=== PATIENT | female | born 1995 | race Two or more races ===

== ENCOUNTER 2017-05-27 08:10 | Emergency (ER) | payer MEDICAID ==
[~2017-05-27] VITALS: Ht 147.3 cm; Wt 45.4 kg
[~2017-05-27 08:10] MED LIST: CALC-304 PO; CIPR-173 PO; ENA10T PO; HYDR200T PO; MYCO500T PO; OMEP20CA74 PO; ONDA4TAB5 PO; TRAM50TA2 PO
[2017-05-27 09:12] VITALS: BP 127/81
[2017-05-27 10:01] LABS: Urine Bilirubin Negative (Negative); Urine Color Yellow (Yellow); Urine Glucose Normal (Normal); Urine Ketone Negative (Negative); Urine Mucus FEW (None Seen); Urine RBC 4 /hpf (0 - 4); Urine Squamous Epithelial Cell FEW /hpf (<5); Urine Urobilinogen Normal (Negative); Urine pH 5.5 (5.0-8.0)
[2017-05-27 10:02] LABS: Urine Blood 1+ /uL (Negative); Urine Nitrite POSITIVE (Negative)
[2017-05-27] MEDS ORDERED: KETOROLAC TROMETH 60MG/2ML VIAL IM ONE (10:15)
[2017-05-27] MEDS ORDERED: cefTRIAXone SOD 1,000 MG VL IM ONE (10:15)
== END 2017-05-27 11:03 | disposition home or self-care (01) ==
LOC: ER 08:10
DX: N12 Tubulo-interstitial nephritis, not specified as acute or chronic (principal); Z90.49 Acquired absence of other specified parts of digestive tract; Z87.440 Personal history of urinary (tract) infections
CPT/HCPCS: 81001; 81025; 96372; 99284; J0696; J1885

== ENCOUNTER 2017-07-10 11:28 | Emergency (ER) | payer MEDICAID ==
[~2017-07-10] VITALS: Ht 147.3 cm; Wt 44.5 kg
[2017-07-10 12:20] LABS: Urine Bilirubin Negative (Negative); Urine Blood Negative /uL (Negative); Urine Color Yellow (Yellow); Urine Glucose Normal (Normal); Urine Ketone Negative (Negative); Urine Mucus FEW (None Seen); Urine Nitrite Negative (Negative); Urine RBC 1 /hpf (0 - 4); Urine Squamous Epithelial Cell FEW /hpf (<5); Urine Urobilinogen Normal (Negative)
[2017-07-10 12:46] LABS: Basophils # (auto) 0 uL; Basophils % (auto) 0.5 % (0.0-2.0); Eosinophils # (auto) 0 uL; Eosinophils % (auto) 1.2 % (0.0-7.0); Hematocrit 33.7 % (36.0-46.0); Hemoglobin 11.6 g/dL (12.2-16.2); Lymphocytes # (auto) 1.7 uL; Lymphocytes % (auto) 45.6 % (10.0-50.0); Mean Corpuscular Hgb Conc. 34.3 g/dL (32.0-36.0); Mean Corpuscular Volume 93.2 fL (80.0-100.0); Mean Platelet Volume 7.2 fL (6.9-10.8); Monocytes # (auto) 0.3 uL; Monocytes % (auto) 7.7 % (0.0-12.0); Neutrophils # (auto) 1.6 uL; Nucleated Red Blood Cells % 0.1 %; Platelet Count (auto) 234 10^3/uL (140-450); White Blood Cell 3.6 10^3/uL (4.4-10.8)
[2017-07-10 12:58] LABS: Albumin 3.4 g/dL (3.4-5.0); Calcium 8.3 mg/dL (8.5-10.1)
[2017-07-10 13:00] LABS: BUN/Creatinine Ratio 12.8
[2017-07-10 13:03] LABS: Bilirubin, Total 0.6 mg/dL (0.2-1.0); Total Protein 6.4 g/dL (6.4-8.2)
[2017-07-10 13:05] LABS: INR 1.1 (0.9-1.15); Partial Thromboplastin Time 24.8 sec (22.64-33.71)
[2017-07-10] MEDS ORDERED: ONDANSETRON HCL 4 MG/2 ML VIAL IV ONE (16:15)
[2017-07-10] MEDS ORDERED: MORPHINE SULF INJ 2 MG/ML SYRINGE 1ML IV ONE (16:15)
[2017-07-10] MEDS ORDERED: SODIUM CHLORIDE 0.9% 1,000 ML IV ONE (16:30)
[2017-07-10 18:45] VITALS: BP 122/76
== END 2017-07-10 18:32 | disposition home or self-care (01) ==
LOC: ER 11:28
DX: M87.051 Idiopathic aseptic necrosis of right femur (principal); Z79.899 Other long term (current) drug therapy; Z90.49 Acquired absence of other specified parts of digestive tract; Z87.440 Personal history of urinary (tract) infections
CPT/HCPCS: 36415; 73552; 73700; 80053; 81001; 84702; 85025; 85379; 85610; 85652; 85730; 93971; 94761; 96361; 96374; 96375; 99285; J2270; J2405; J7030

== ENCOUNTER 2018-09-05 11:26 | Emergency (ER) | payer MEDICAID ==
[~2018-09-05] VITALS: Ht 147.3 cm; Wt 49.9 kg
[~2018-09-05 11:26] MED LIST changes: +HYDR-4441 PO; -HYDR200T PO
[2018-09-05 11:55] VITALS: BP 120/71
[2018-09-05 12:14] LABS: Basophils # (auto) 0 uL; Basophils % (auto) 0.5 % (0.0-2.0); Eosinophils # (auto) 0 uL; Eosinophils % (auto) 0.8 % (0.0-7.0); Hemoglobin 12.4 g/dL (12.2-16.2); Lymphocytes # (auto) 1.9 uL; Lymphocytes % (auto) 41.6 % (10.0-50.0); Mean Corpuscular Hemoglobin 30.3 pg (28.0-32.0); Mean Corpuscular Hgb Conc. 33.4 g/dL (32.0-36.0); Mean Corpuscular Volume 90.5 fL (80.0-100.0); Monocytes # (auto) 0.3 uL; Neutrophils # (auto) 2.2 uL; Neutrophils % (auto) 50.1 % (37.0-80.0); Nucleated Red Blood Cells % 0.1 %; Platelet Count (auto) 224 10^3/uL (140-450); Red Blood Cells 4.08 10^6/uL (4.0-5.20); Red Cell Distribution Width 12.5 % (11.8-14.3); White Blood Cell 4.5 10^3/uL (4.4-10.8)
[2018-09-05 12:19] LABS: Urine Bacteria FEW /hpf (None Seen); Urine Blood TRACE /uL (Negative); Urine Mucus FEW (None Seen); Urine Specific Gravity 1.037 (1.001-1.035); Urine WBC 5 /hpf (0 - 5)
[2018-09-05 12:31] LABS: Albumin 3.8 g/dL (3.4-5.0); Calcium 8.3 mg/dL (8.5-10.1); Potassium 3.6 mmol/L (3.5-5.1)
[2018-09-05] MEDS ORDERED: SODIUM CHLORIDE 0.9% 1,000 ML IV ONE (12:31)
[2018-09-05 12:34] LABS: Bilirubin, Total 1.1 mg/dL (0.2-1.0); Total Protein 7.5 g/dL (6.4-8.2)
[2018-09-05] MEDS ORDERED: cefTRIAXone 1GM/50ML D5W 50 ML IV ONE (12:45)
[2018-09-05] MEDS ORDERED: KETOROLAC TROMETH 30 MG/ML 1ML VIAL IV ONE (12:45)
== END 2018-09-05 13:03 | disposition home or self-care (01) ==
LOC: ER 11:28
DX: N39.0 Urinary tract infection, site not specified (principal); Z90.49 Acquired absence of other specified parts of digestive tract
CPT/HCPCS: 36415; 80053; 81001; 81025; 85025; 94761; 96374; 96375; 99284; J0696; J1885

== ENCOUNTER 2020-06-12 17:55 | Emergency (ER) | payer MEDICAID ==
[~2020-06-12] VITALS: Ht 147.3 cm; Wt 49.9 kg
[~2020-06-12 17:55] MED LIST changes: -CALC-304 PO; -CIPR-173 PO; -ENA10T PO; +ENAL10TA12 PO; +HYDR-4188 PO; -HYDR-4441 PO; -OMEP20CA74 PO; -ONDA4TAB5 PO; -TRAM50TA2 PO
[2020-06-12 18:01] VITALS: BP 124/67
== END 2020-06-12 20:18 | disposition left against medical advice (07) ==
LOC: ER 17:56
DX: M25.551 Pain in right hip (principal); Z53.21 Procedure and treatment not carried out due to patient leaving prior to being seen by health care provider

== ENCOUNTER → 2020-11-24 | Emergency (ER) | payer MEDICAID ==
[~2020-11-24] VITALS: Ht 160 cm; Wt 49.9 kg
[~2020-11-24] MED LIST changes: +IBUPROFEN 600 MG TAB PO ONE; +ONDANSETRON HCL 4 MG/2 ML VIAL IV ONE; +ONDANSETRON HCL 4 MG/2 ML VIAL ONE; +SODIUM CHLORIDE 0.9% 1,000 ML IVB ONE; +cefTRIAXone 1GM/50ML D5W 50 ML IV ONE
[2020-11-24 11:55] LABS: Basophils # (auto) 0 10 ^3/uL (0-0.2); Basophils % (auto) 0.4 % (0.0-2.0); Eosinophils # (auto) 0 10 ^3/uL (0-0.8); Eosinophils % (auto) 0.5 % (0.0-7.0); Hematocrit 35.5 % (36.0-46.0); Hemoglobin 12.7 g/dL (12.2-16.2); Lymphocytes # (auto) 1.2 10 ^3/uL (0.4-5.4); Lymphocytes % (auto) 17.6 % (10.0-50.0); Mean Corpuscular Hemoglobin 31.7 pg (28.0-32.0); Mean Corpuscular Hgb Conc. 35.7 g/dL (32.0-36.0); Mean Corpuscular Volume 88.9 fL (80.0-100.0); Monocytes # (auto) 0.4 10 ^3/uL (0-1.3); Monocytes % (auto) 5.6 % (0.0-12.0); Neutrophils % (auto) 75.9 % (37.0-80.0); Platelet Count (auto) 230 10^3/uL (140-450); Red Cell Distribution Width 11.9 % (11.8-14.3); White Blood Cell 6.6 10^3/uL (4.4-10.8)
[2020-11-24 12:12] LABS: Albumin 3.8 g/dL (3.4-5.0); Anion Gap 4 (5-15); Blood Urea Nitrogen 12 mg/dL (7-18); Calcium 8.3 mg/dL (8.5-10.1); Carbon Dioxide 25 mmol/L (21-32); Chloride 110 mmol/L (98-107); Glucose 87 mg/dL (74-106); Potassium 3.6 mmol/L (3.5-5.1); Sodium 139 mmol/L (136-145)
[2020-11-24 12:15] LABS: INR 1.06 (0.9-1.15); Partial Thromboplastin Time 29.4 sec (23.0-31.2)
[2020-11-24 12:17] LABS: Urine Bacteria FEW /hpf (None Seen); Urine Blood Negative /uL (Negative); Urine Mucus FEW (None Seen); Urine Specific Gravity 1.024 (1.001-1.035); Urine WBC 28 /hpf (0 - 5)
[2020-11-24 12:20] LABS: Alanine Aminotransferase 15 U/L (13-56); Alkaline Phosphatase 47 U/L (45-117); Aspartate Aminotransferase 18 U/L (15-37); BUN/Creatinine Ratio 21.1; Bilirubin, Total 1.3 mg/dL (0.2-1.0); GFR African American 165 mL/min; GFR Non-African American 136 mL/min; Total Protein 7.3 g/dL (6.4-8.2)
[2020-11-24 12:24] LABS: Alcohol, Urine < 3.0 mg/dL (0-10); Amphetamine Screen, Urine NEGATIVE (NEGATIVE); Barbiturate Scree,Urine NEGATIVE (NEGATIVE); Cannabinoid Screen, Urine POSITIVE (NEGATIVE); Opiate Scree,Urine NEGATIVE (NEGATIVE); Phencyclidine Screen, Urine NEGATIVE (NEGATIVE)
[2020-11-24 12:29] LABS: Benzodiazephine Screen, Urine NEGATIVE (NEGATIVE); Cocaine Screen, Urine NEGATIVE (NEGATIVE)
[2020-11-24 13:58] VITALS: BP 109/58
== END | disposition home or self-care (01) ==
LOC: ER 10:56
DX: N39.0 Urinary tract infection, site not specified (principal); R07.9 Chest pain, unspecified; M79.10 Myalgia, unspecified site; Z20.822 Contact with and (suspected) exposure to COVID-19; Z90.49 Acquired absence of other specified parts of digestive tract
CPT/HCPCS: 36415; 71045; 80053; 80307; 81001; 83605; 83735; 83880; 84484; 84702; 85025; 85610; 85730; 87040; 87426; 96361; 96365; 96375; 99284; C9803; J0696; J2405; J7030; U0003

== ENCOUNTER 2021-08-31 08:32 | Emergency (ER) | payer MEDICAID ==
[~2021-08-31] VITALS: Ht 147.3 cm; Wt 45.4 kg
[~2021-08-31 08:32] MED LIST changes: -IBUPROFEN 600 MG TAB PO ONE; -ONDANSETRON HCL 4 MG/2 ML VIAL IV ONE; -ONDANSETRON HCL 4 MG/2 ML VIAL ONE; -SODIUM CHLORIDE 0.9% 1,000 ML IVB ONE; -cefTRIAXone 1GM/50ML D5W 50 ML IV ONE
[2021-08-31 09:25] LABS: Urine Bacteria NONE SEEN /hpf (None Seen); Urine Blood Negative /uL (Negative); Urine Mucus FEW (None Seen); Urine Specific Gravity 1.028 (1.001-1.035); Urine WBC 7 /hpf (0 - 5)
[2021-08-31 09:27] LABS: Basophils # (auto) 0 10 ^3/uL (0-0.2); Basophils % (auto) 0.5 % (0.0-2.0); Eosinophils # (auto) 0 10 ^3/uL (0-0.8); Eosinophils % (auto) 0.3 % (0.0-7.0); Hematocrit 40.4 % (36.0-46.0); Hemoglobin 13.8 g/dL (12.2-16.2); Lymphocytes # (auto) 1.5 10 ^3/uL (0.4-5.4); Lymphocytes % (auto) 21.5 % (10.0-50.0); Mean Corpuscular Hemoglobin 31.1 pg (28.0-32.0); Mean Corpuscular Hgb Conc. 34.1 g/dL (32.0-36.0); Monocytes # (auto) 0.5 10 ^3/uL (0-1.3); Monocytes % (auto) 6.3 % (0.0-12.0); Neutrophils # (auto) 5.1 10 ^3/uL (1.6-8.6); Neutrophils % (auto) 71.4 % (37.0-80.0); Nucleated Red Blood Cells % 0.1 %; Red Blood Cells 4.43 10^6/uL (4.0-5.20); Red Cell Distribution Width 12.5 % (11.8-14.3); White Blood Cell 7.1 10^3/uL (4.4-10.8)
[2021-08-31 09:41] LABS: Albumin 4.5 g/dL (3.4-5.0); Calcium 9.1 mg/dL (8.5-10.1); Potassium 4.1 mmol/L (3.5-5.1)
[2021-08-31 09:50] LABS: Bilirubin, Total 1.2 mg/dL (0.2-1.0); Total Protein 7.5 g/dL (6.4-8.2)
[2021-08-31 10:38] VITALS: BP 139/74
== END 2021-08-31 11:30 | disposition home or self-care (01) ==
LOC: ER 08:32
DX: N39.0 Urinary tract infection, site not specified (principal); R11.2 Nausea with vomiting, unspecified; Z79.899 Other long term (current) drug therapy; Z90.49 Acquired absence of other specified parts of digestive tract
CPT/HCPCS: 36415; 80053; 81001; 81025; 85025

== ENCOUNTER 2021-09-25 08:48 | Emergency (ER) | payer MEDICAID ==
[~2021-09-25] VITALS: Ht 147.3 cm; Wt 46.7 kg
[2021-09-25] MEDS ORDERED: MORPHINE SULFATE INJECTION 2 MG/ML SYRG IM ONE (12:15)
[2021-09-25] MEDS ORDERED: ONDANSETRON ODT 4 MG TAB PO ONE (12:15)
[2021-09-25 12:23] VITALS: BP 128/78
== END 2021-09-25 12:38 | disposition home or self-care (01) ==
LOC: ER 08:48
DX: M79.604 Pain in right leg (principal); Z96.641 Presence of right artificial hip joint; Z87.39 Personal history of other diseases of the musculoskeletal system and connective tissue; Z90.49 Acquired absence of other specified parts of digestive tract; Z79.899 Other long term (current) drug therapy
CPT/HCPCS: 73552; 96372; 99283; J2270; Q0162